=== PATIENT | female | born 1970 | race Caucasian/White ===

== ENCOUNTER 2021-09-06 08:06 | Emergency (ER) | payer BC, SELFPAY ==
[2021-09-06 08:20] VITALS: BP 127/88; PULSE 85; RESP 18; TEMP 36.8; O2SAT 100; BMI 26.5
--- NOTE | 2021-09-06 08:41 | HMH.EDUTC ---
[facility] [place] Disposition Clinical Impression: Gingival swelling Disposition: Home, Self-Care Condition on Discharge: Good Instructions: Tooth Abscess, Amoxicillin and Clavulanic Acid Additional Instructions: Make sure to rinse mouth and gargle warm salt water Follow up with Dentist for further treatment and evaluation Follow up with ENT if no improvement Take medication as prescribed Return if needed Straight to ER if any life threatening symptoms Prescriptions: Amoxicillin/Potassium Clav [Amox-Clav 875-125 mg Tablet] 1 tab PO BID #20 tab Transmission Status: Pending to [facility] Referrals: Provider,Referral, [Primary Care Provider] - As needed Forms: Work/School Release Time of Disposition: 08:47 Medical Decision Making - Luis Enrique Inquiry Pt receiving controlled substance: No Luis Enrique was queried for this patient: No Vital Signs: 09/06/21 08:20 Temperature 98.2 F Temperature Source Oral Pulse Rate [Left Brachial] 85 Respiratory Rate 18 Blood Pressure [Left Arm] 127/88 Blood Pressure Mean [Left Arm] 101 Blood Pressure Source [Left Arm] Automatic Cuff Blood Pressure Position [Left Arm] Sitting 02 Sat by Pulse Oximetry 100 Oxygen Delivery Method Room Air [facility] [place] HPI - General Stated complaint: oral pain, neck pain Time Seen by Provider: 09/06/21 08:41 Mode of Arrival: Ambulatory Source of Information: Patient Limitations: No Limitations Description of Symptoms (Recalled from Triage Doc. by RN): PATIENT C/O SWELLING TO LEFT GUM AND GLAND TO LEFT SIDE OF NECK THAT STARTED MONDAY HEENT Symptoms (Recalled from RN notes): Yes Resp Symptoms (Recalled from RN notes): No Skin Symptoms (Recalled from RN notes): No MS Symptoms (Recalled from RN notes): No Functional Status (Recalled from RN notes): WNL - History of Present Illness Provider Complaint: Patient states that she has been having pain and swelling in her left upper back gum area States that he wisdom teeth was removed many years ago and it did this before and she chewed some gum and it 'popped States that now she is having swelling in her left neck lymph nodes States today it was worse so she came in - Related Data Previous Rx's Medication Instructions Recorded Amoxicillin/Potassium Clav 1 tab PO BID #20 tab 09/06/21 [Amox-Clav 875-125 mg Tablet] Allergies Allergy/AdvReac Type Severity Reaction Status Date / Time azithromycin Allergy Verified 09/06/21 08:39 - Worker's Comp Is this a Worker's Comp case?: No [facility] History - Hepatitis A Screen Attestation statement:: This patient has been screened for Hepatitis A risk factors. I have reviewed the patient's past medical history: Yes - Social History Alcohol Intake: never Occupational Status: other ROS Obtained: Yes All systems reviewed & no additional complaints, Yes Systems reviewed as appropriate & no additional complaints - Constitutional Constitutional: Reports system reviewed and no additional complaints, except as docu - Eyes Eyes: Reports system reviewed and no additional complaints, except as docu - ENT Ears, Nose, Mouth, and Throat: Reports system reviewed and no additional complaints, except as docu, Reports dental pain, Reports other Comments: swelling in her left upper gum and lymph nodes Physical Exam - General General appearance: alert, in no apparent distress - Expanded ENT Exam Teeth exam: Present: gingival swelling - Neck Neck exam: Present: normal inspection, full ROM, trachea midline, other (swelling in left lymph nodes under jawline). Absent: meningismus, lymphadenopathy - Respiratory Respiratory exam: Present: normal lung sounds bilaterally. Absent: respiratory distress - Cardiovascular Cardiovascular exam: Present: regular rate, normal rhythm. Absent: JVD - Abdominal Exam Abdominal exam: Present: soft, normal bowel sounds. Absent: distention, tenderness, guarding - Neurological Exam Neurological exam: Prese
[2021-09-06 08:52] VITALS: BP 127/88; PULSE 85; RESP 18; TEMP 36.8; O2SAT 100
== END 2021-09-06 08:55 | disposition home or self-care (01) ==
PROVIDERS: Emergency Provider Nurse Practitioner
DX: K06.1 Gingival enlargement (principal); K08.89 Other specified disorders of teeth and supporting structures; M54.2 Cervicalgia; Z88.0 Allergy status to penicillin; Z88.1 Allergy status to other antibiotic agents; Z88.3 Allergy status to other anti-infective agents
CPT/HCPCS: 99213; G0463